=== PATIENT | female | born 1925 | race Caucasian/White ===

== ENCOUNTER 2017-02-06 09:42 | Emergency (ER) | payer OTHER, BC ==
[2017-02-06 09:53] VITALS: TEMP 97.7; BMI 34.7
--- NOTE | 2017-02-06 10:13 | PDOC ---
*Physical Exam - Vital Signs Last Vital Signs Temp Pulse Resp BP Pulse Ox 97.7 F 108 H 18 149/103 98 02/06/17 09:49 02/06/17 09:49 02/06/17 09:49 02/06/17 09:49 02/06/17 09:49 - Physical Exam Comments: 02/06/17 10:13 MIDLEVEL NOTE Pt seen by Midlevel Provider under my direct supervision. Pt interviewed and examined. Ancillary studies reviewed. I agree with plan as outlined by Midlevel Provider. Right humerus series There is some prominence in the soft tissues, but this humerus is intact Right elbow Olecranon spur, no acute fracture 02/06/17 13:52 Ultrasound-hematomas noted in the right arm Ultrasound shows a 6.7 x 5.7 x 2 cm oblong-shaped nonspecific fluid collection which may represent hematoma is noted within the right upper arm soft tissues laterally adjacent to the level of the elbow. Area was marked using permanent marker and patient made aware if swelling goes beyond the line to consider coming back to the ERPatient will be given a referral to follow up with Dr. Ortiz vascular surgery. Patient also will be given instructions on hematoma care. *DC/Admit/Observation/Transfer Diagnosis at time of Disposition: Traumatic hematoma of right upper arm Qualifiers: Encounter type: initial encounter Qualified Code(s): S40.021A - Contusion of right upper arm, initial encounter - Discharge Dispostion Disposition: HOME Condition at time of disposition: Good - Referrals Referrals: Oni Ortiz MD [Staff Physician] - Mark Gan MD [Primary Care Provider] - - Patient Instructions Printed Discharge Instructions: DI for Hematoma (Bruise), DI for Arm Pain Additional Instructions: Enclosed are instructions in regards to care for the hematoma which I recommend you elevate, take Tylenol, and apply ice for the next 2 days then heat thereafter. If area goes beyond the line and seems to worsen please return to ED otherwise follow up with referred vascular physician
[2017-02-06] MEDS ORDERED: ACETAMINOPHEN 500 MG TABLET (FP) PO ONE (10:39)
[2017-02-06] MEDS ORDERED: ACETAMINOPHEN 325 MG TABLET (FP) ONE (10:42)
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
[2017-02-06 14:31] VITALS: BP 157/87; PULSE 75
== END 2017-02-06 14:15 | disposition home or self-care (01) ==
LOC: JER 09:42
DX: S40.021A Contusion of right upper arm, initial encounter (principal); W22.03XA Walked into furniture, initial encounter; Y93.89 Activity, other specified; Y92.9 Unspecified place or not applicable; D64.9 Anemia, unspecified; I10 Essential (primary) hypertension; H35.30 Unspecified macular degeneration
CPT/HCPCS: 73060-TC-RT; 73070-TC-RT; 76882; 99283-25